=== PATIENT | female | born 1945 | race Hispanic/Latino ===

== ENCOUNTER 2019-10-02 11:00 | Emergency (ER) | payer MEDICARE ==
[~2019-10-02] VITALS: Ht 157.5 cm; Wt 77.1 kg
--- OUTSIDE RECORDS SUMMARY | 2019-10-02 11:03 | XMS REPORT ---
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 Allergies, Adverse Reactions, Alerts Allergy Name Allergy Type Status Severity Reaction(s) Onset Date Inactive Date Treating Clinician Comments No Known Allergies DA Active U 2013-11-21 00:00:00 Medications This patient has no known medications. Results Test Description Test Time Test Comments Text Results Atomic Results Result Comments - XR L-SPINE 2/3 VIEWS 2019-08-10 13:37:00 FAX: Johnie Pappas DO [phone] [place]: St: REG Name: SHELDON DEMPSEY [facility] : 1945 Age/S: 74/F [address] Unit #: [id number] Loc: [place] [address] Phys: Johnie Oneal DO Acct: [id number] Dis Date: Status: REG CLI PHONE #: [phone] Exam Date: 08/10/2019 1132 FAX #: [phone] Reason: M54.5 EXAMS: CPT CODE: [id number] XR L-SPINE 2/3 VIEWS 52310 HISTORY: M54.5. COMPARISON: None available. 3 views of the lumbar spine: Minimal grade 1 anterolisthesis of L4 over L5. Ve rtebral body heights are maintained. Disc space narrowing at L5-S1 level. Sclerosis of the apophyseal joints at L4-L5 and L5-S1 level. Anterolateral marginal osteophytes throughout the lumbar spine. No acute fracture. IMPRESSION: No acute fracture. Grade 1 anterolisthesis of L4 over L5 appears degenerative. Vertebral body heights are maintained. Anterolateral marginal osteophytes. at 1338 Reported and signed by: Bethel Hernandez M.D. CC: Johnie Oneal Technologist: Nerissa DENSON(R) Trnscrd Date/Time/By: 08/10/2019 ([id number]) : By: [email or web address] Orig Print D/T: S: 08/10/2019 (3952) PAGE 1 Signed Report Culture, Wound Nonsurgical 2018-01-30 08:40:00 Specimen/Source: Wound/mrsaCollected: 01/27/2018 11:40 Status: Final Last Updated: 01/30/2018 08:40 Gram Stain (Final) (Final) 01/28/18 No organsims seen, No WBC's seen Culture Result (Final) (Final) 01/28/18 Smear from broth Gram positive cocci in clumps 01/29/18n From broth Staph-coag negative 01/30/18 Anaerobic culture:No anaerobes isolated at 3 days Isolate (Final) (Final) 01/29/18 From broth Morganella morganii Amikacin <=16 Susceptible Ampicillin >16 Resistant Ampicillin/Sulb >16/8 Resistant Cefazolin >16 Resistant Cefepime <=4 Susceptible Cefotaxime <=2 Susceptible Ceftazidime <=1 Susceptible Ceftriaxone <=1 Susceptible Cefuroxime >16 Resistant Ciprofloxacin <=1 Susceptible Gentamicin <=4 Susceptible Imipenem 2 Intermediate Levofloxacin <=2 Susceptible Meropenem <=1 Susceptible Piperacillin/Tazo <=16 Susceptible Tobramycin <=4 Susceptible Trimethoprim/Sulfa <=2/38 Susceptible Partial Thromboplastin Time 2018-01-27 14:10:00 aPTT (test code=PTT) 36.20 seconds 24.39-37.25 Culture, [id number] 09:14:00Specimen: NasalCollected: 12/26/2017 12:54 Status: Final Last Updated: 12/28/2017 09:14 Culture Result (Final) (Final) 12/27/17 Growth too young to evaluate at 24 hours-reincubated 12/28/17 Normal billie at 48 hours Prothrombin [id number] 08:18:00* Test Item Value Reference Range Comments PT (test code=PT) CANCELED seconds 9.78-13.35 The released value 11.10 was canceled by [facility] on 12/27/2017 08:18 INR (test code=INR) CANCELED Ratio 0.6-1.2 The released value 0.98 was canceled by [facility] on 12/27/2017 08:18 Partial Thromboplastin [id number] 19:31:00* Test Item Value Reference Range Comments aPTT (test code=PTT) 33.70 seconds 24.39-37.25
--- OUTSIDE RECORDS SUMMARY | 2019-10-02 11:03 | XMS REPORT | Summary of Care ---
Author Author [place], Rosette Teixeira Unknown Address [facility] Phone Unavailable Care Team Providers Care Screen Vent Binder Name Role Phone Padmini Rosenthal, Elan Unavailable Unavailable RASHAAD Carty, ERMIAS Unavailable Unavailable PADMINI SHRIMP PICKER [facility], ELAN Unavailable Unavailable NICO Carty, JONA Unavailable Unavailable Yelitza Carty, Maty Unavailable Unavailable BRADFORD ANDERSON, ISIDORO BLOUNT Unavailable Unavailable Rashaad ANDERSON, Ermias Unavailable Unavailable Unavailable Unavailable Functional Status Name Dates Details Functional status health issues are not documented Status: Name Dates Details Cognitive status health issues are not documented Status: Problems Name Dates Details Peripheral neuropathy, 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, G60.9) Status: Active Joint pain of lower extremity (719.48, M25.50) Status: Active Caries (521.00, K02.9) Status: Active Conductive hearing loss (389.00, H90.2) Status: Active Preventative health care (V70.0, Z00.00) Status: Active Encounter for gynecological examination without abnormal finding (V72.31, Z01.419) Status: Active Tinnitus, 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, 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) Status: Active Developmental dislocation of joint, 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, 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0) Status: Active Hot flashes, menopausal (627.2, N95.1) Status: Active Foot pain (729.5, M79.673) Status: Active Physical deconditioning (799.3, R53.81) Status: Active Preoperative clearance (V72.84, Z01.818) Status: Active Shortness of breath on exertion (786.05, R06.02) Status: Active SOB (shortness of breath) (786.05, R06.02) Status: Active Bundle branch block, 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, 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) Status: Active Fatigue (780.79, R53.83) Status: Active Pre-operative cardiovascular examination (V72.81, Z01.810) Status: Active Medications Name Dates Details Simvastatin 40 MG Oral Tablet TAKE 1 TABLET BY MOUTH AT BEDTIME Quantity: 90 Padmini N.PElan Rabago * Start : 09-Mar-2013 Active Arthritis Pain Relief TABS * Refills: 0 Active Vitamin D-3 5000 UNIT Oral Tablet * Refills: 0 Active Advil TABS TAKE TABLET PRN * Refills: 0 Active Allergies and Adverse Reactions Name Dates Details No Known Drug Allergies (Allergy) Status: Active Past Medical History Name Dates Details History of Acute upper respiratory infection (465.9, J06.9) Status: Resolved History of Ankle pain (719.47, M25.579) Status: Resolved History of Arthritis (V13.4) Status: Resolved History of Arthritis (V13.4) Status: Resolved History of Bilateral impacted cerumen (380.4, H61.23) Status: Resolved History of deep venous thrombosis (V12.51, Z86.718) Status: Resolved History of Elevated blood pressure reading without diagnosis of hypertension (796.2, R03.0) Status: Resolved History of hyperglycemia (V12.29, Z86.39) Status: Resolved History of hyperlipidemia (V12.29, Z86.39) Status: Resolved Procedures Procedure Dates Details History of shoulder surgery Completed Immunization Name Dates Details Fluzone Quadrivalent 0.5 ML Intramuscular Suspension Lot #: [id number] on: 29-Aug-2014 Zoster (Zostavax) Lot #: [id number] on: 29-Aug-2014 Pneumovax 23 25 MCG/0.5ML Injection Injectable Lot #: [id number] on: 29-Aug-2014 Tdap (Adacel) Lot #: [id number] on: 31-Oct-2014 Family History Name Dates Details Family history of Cancer Comments: Family History Status: Active Name Dates Details Family history of Uterine Cancer (V16.49) Status: Active Name Dates Details Family history of Arthritis (V17.7) Status: Active Name Dates Details Family history of Diabetes Mellitus (V18.0) Status: Active Name Dates Details Family history of cardiac pacemaker (V17.49, Z84.89) Status: Active Social History Name Dates Details - Status: Name Dates Details Never smoker Vital Signs Date Test Result Details 04-Jan-20189:32 BP Systolic 109 mm[Hg] Status: Comments: Location: LUE; Position: Sitting BP Diastolic 70 mm[Hg] Status: Comments: Location: LUE; Position: Sitting Height 61 in Status: Weight 178.125 lb Status: Body Mass Index Calculated 33.66 kg/m2 Status: Body Surface Area Calculated 1.8 m2 Status: Heart Rate 73 /min Status: Respiration Rate 16 /min Status: 84-Svf-203600:06 BP Systolic 128 mm[Hg] Status: Comments: Location: LUE; Position: Sitting BP Diastolic 67 mm[Hg] Status: Comments: Location: LUE; Position: Sitting Height 61 in Status: Weight 177.5 lb Status: Body Mass Index Calculated 33.54 kg/m2 Status: Body Surface Area Calculated 1.8 m2 Status: Heart Rate 67 /min Status: Respiration Rate 16 /min Status: Results Date Description Value Details Results not documented Plan of Care Name Dates Details Planned Observations Planned Goals not documented Interventions Provided Discussion/Summary* The patient was seen and evaluated for pre-op risk stratification before the knee surgery. Her cardiac risk factors include HLP and obesity. Currently, she denies chest pain, orthopnea or PND, but does c/o exertional dyspnea. She has no major valvular abnormalities, or significant arrhythmias. She does not actively exercise, functional capacity is unable to assess. However, adenosine stress test did not show ischemia. For the low risk surgery that she is planned to undergo, she is at low risk for adverse cardiac outcomes including [place], or arrhythmia. No further testing is needed at this time, and the patient can undergo the surgery. * I have also discussed, and strongly recommended to continue to optimize cardiac risk factors as per current JNC, NCEP, and ADA guidelines. Avoid smoking and tobacco products. I also discussed the importance of regular exercise, and suggested at least 200 mins of aerobic exercise every week. Diet optimization is also recommended, please reduce saturated fat intake, cut down red meat in diet, avoid simple carbohydrates, and increase fruit and vegetable intake. * All the test results were discussed with the patient in details, all the questions were answered. The plan above was communicated. Patient counseled regarding exercise. Clinic follow-up discussed. Total time spent with patient was 25 minutes. Time spent in counseling and/or coordination of care for this patient this time was greater than 50% of the visit. * Return to clinic as needed. F/U with PCP on regular basis. Instructions Name Dates Details Instructions not documented Encounters Appointment; Elan Washington NP Encounter Diagnosis: Problem not documented On: 15-Jan-2016 8:45 Appointment; Elan Washington NP Encounter Diagnosis: Problem not documented On: 22-Apr-2016 15:00 Appointment; BENNIE LANDAVERDE M.D. Encounter Diagnosis: Problem not documented On: 04-Jun-2016 8:45 Appointment; BENNIE LANDAVERDE M.D. Encounter Diagnosis: Problem not documented On: 04-Jun-2016 16:00 Appointment; BENNIE LANDAVERDE M.D. Encounter Diagnosis: Problem not documented On: 07-Jun-2016 13:45 Appointment; BENNIE LANDAVERDE M.D. Encounter Diagnosis: Problem not documented On: 12-Jul-2016 11:15 Appointment; Elan Washington NP Encounter Diagnosis: Problem not documented On: 21-Jul-2016 14:30 Appointment; TARIQ TRACY M.D. Encounter Diagnosis: Problem not documented On: 28-Jul-2016 13:15 Appointment; BENNIE LANDAVERDE M.D. Encounter Diagnosis: Problem not documented On: 09-Aug-2016 11:15 Appointment; BENNIE LANDAVERDE M.D. Encounter Diagnosis: Problem not documented On: 15-Oct-2016 10:45 Appointment; Elan Washington NP Encounter Diagnosis: Problem not documented On: 03-Feb-2017 15:00 Appointment; ERMIAS MONTAÑO M.D. Encounter Diagnosis: Problem not documented On: 28-Dec-2017 11:00 Appointment; AGNESORE-MS, NUCLEAR Encounter Diagnosis: Problem not documented On: 02-Jan-2018 11:45 Appointment; GANESORE-MS, ECHO Encounter Diagnosis: Problem not documented On: 03-Jan-2018 16:00 Appointment; ERMIAS MONTAÑO M.D. Encounter Diagnosis: Problem not documented On: 04-Jan-2018 9:20
[2019-10-02] MEDS ORDERED: HYDROCODONE/APAP 7.5MG-325MG 1 EA TAB PO ONE (11:30)
--- NOTE | 2019-10-02 13:11 | Diagnostic Imaging Report ---
EXAMINATION: SHOULDER RIGHT COMPLETE INDICATION: Right shoulder pain COMPARISON: None FINDINGS: Status post right total shoulder arthroplasty. No acute fracture or dislocation. Alignment appears anatomic. Hardware appears intact. Degenerative changes of the right acromioclavicular joint. The visualized portions of the lung are clear. IMPRESSION: Status post right total shoulder arthroplasty. No acute osseous injury or evidence of hardware failure. Acromioclavicular degenerative changes. Signed by: Susy Castillo MD on 10/02/2019 1:08 PM
== END 2019-10-02 13:26 | disposition home or self-care (01) ==
LOC: ER 11:00
DX: S46.011A Strain of muscle(s) and tendon(s) of the rotator cuff of right shoulder, initial encounter (principal); E78.00 Pure hypercholesterolemia, unspecified
CPT/HCPCS: 99283